=== PATIENT | female | born 1985 | race Caucasian/White ===

== ENCOUNTER 2023-04-04 15:37 | Emergency (ER) | payer MEDICARE, OTHER ==
[2023-04-04 15:51] VITALS: BP 131/75; PULSE 85; RESP 18; TEMP 98.2; BMI 33.6
[2023-04-04] MEDS ORDERED: SODIUM CHLORIDE 0.9% 500 ML INFUS.BAG IV ONE (17:32)
[2023-04-04 18:05] LABS: EPI CELLS >36 /uL (0-25.1); HYALINE CASTS 4 /uL (0-3.1); PH,URINE 5.5 (5.0-8.0); URINE APPEARANCE CLEAR; URINE BACTERIA 414 /uL (0-1359); URINE BILIRUBIN NEGATIVE (NEGATIVE); URINE COLOR YELLOW; URINE GLUCOSE (UA) NEGATIVE (NEGATIVE); URINE KETONE NEGATIVE (NEGATIVE); URINE LEUK ESTERASE 2+ (NEGATIVE); URINE NITRITE NEGATIVE (NEGATIVE); URINE PROTEIN NEGATIVE (NEGATIVE); URINE RBC 63 /uL (0-23.9); URINE UROBILINOGEN 0.2 mg/dL (0.2-1.0); URINE WBC 483 /uL (0-25.8)
[2023-04-04 18:06] LABS: BASO % 0.3 % (0-2.0); EOS % 1.9 % (0-4.5); HEMATOCRIT 38.1 % (32.4-45.2); HEMOGLOBIN 12.5 GM/dL (10.7-15.3); LYMPH % 21.5 % (8-40); MCH 26.4 pg (25.7-33.7); MCHC 32.9 g/dl (32.0-36.0); MEAN CELL VOLUME 80.1 fl (80-96); MEAN PLT VOLUME 8.9 fl (7.5-11.1); MONO % 4.6 % (3.8-10.2); NEUT % 71.7 % (42.8-82.8); PLATELET COUNT 291 10^3/uL (134-434); RBC 4.75 M/mm3 (3.60-5.2); RDW 14.3 % (11.6-15.6); WHITE BLOOD COUNT 9.9 K/mm3 (4.0-10.0)
[2023-04-04 18:20] LABS: HCG,QUALITATIVE URINE Negative
[2023-04-04] MEDS ORDERED: CEFTRIAXONE 1,000 MG in DEXTROSE 5%-WATER - 50 ML IVPB ONE (18:27)
[2023-04-04 18:41] LABS: CALCIUM 8.2 mg/dL (8.5-10.1)
[2023-04-04 18:42] LABS: BLOOD UREA NITROGEN 9.7 mg/dL (7-18)
[2023-04-04 18:45] LABS: CREATININE 0.8 mg/dL (0.55-1.3)
[2023-04-04] MEDS ORDERED: cefTRIAXone SODIUM 1 GM VIAL ONE (18:45)
== END 2023-04-04 19:27 | disposition home or self-care (01) ==
LOC: JERFT 15:37
DX: R39.15 Urgency of urination (principal); R30.0 Dysuria; R39.11 Hesitancy of micturition; N89.8 Other specified noninflammatory disorders of vagina; N39.0 Urinary tract infection, site not specified; B37.31 Acute candidiasis of vulva and vagina
CPT/HCPCS: 36415; 80048; 81003; 84703; 85025; 87086; 87491; 87591; 87661; 96365; 99284-25

== ENCOUNTER 2023-05-27 09:10 | Emergency (ER) | payer MEDICARE, OTHER ==
[2023-05-27 09:20] VITALS: BP 138/82; PULSE 82; RESP 16; TEMP 98.3; BMI 31.1
[2023-05-27 09:40] LABS: EPI CELLS >36 /uL (0-25.1); HYALINE CASTS 1 /uL (0-3.1); PH,URINE 5.5 (5.0-8.0); URINE APPEARANCE CLOUDY; URINE BACTERIA 155 /uL (0-1359); URINE BILIRUBIN NEGATIVE (NEGATIVE); URINE COLOR YELLOW; URINE GLUCOSE (UA) NEGATIVE (NEGATIVE); URINE KETONE NEGATIVE (NEGATIVE); URINE LEUK ESTERASE 3+ (NEGATIVE); URINE NITRITE NEGATIVE (NEGATIVE); URINE PROTEIN NEGATIVE (NEGATIVE); URINE RBC 30 /uL (0-23.9); URINE UROBILINOGEN 0.2 mg/dL (0.2-1.0); URINE WBC 609 /uL (0-25.8)
[2023-05-27] MEDS ORDERED: FLUCONAZOLE 50 MG TABLET PO ONE (10:31)
[2023-05-27] MEDS ORDERED: FLUCONAZOLE 150 MG TABLET PO ONE (11:21)
== END 2023-05-27 11:25 | disposition home or self-care (01) ==
LOC: JERFT 09:10
DX: R30.0 Dysuria (principal); N89.8 Other specified noninflammatory disorders of vagina; N39.0 Urinary tract infection, site not specified
CPT/HCPCS: 81003; 87086; 99283-25

== ENCOUNTER 2023-07-01 10:01 | Emergency (ER) | payer MEDICARE, OTHER ==
[2023-07-01] MEDS ORDERED: IBUPROFEN 600 MG TABLET (FP) PO ONE (10:14)
[2023-07-01 11:36] VITALS: BP 139/88; RESP 18; BMI 32.5
[2023-07-01] MEDS ORDERED: ACETAMINOPHEN 500 MG TABLET (FP) PO ONE (11:45)
[2023-07-01] MEDS ORDERED: DEXAMETHASONE 4 MG TABLET (FP) PO ONE (11:45)
[2023-07-01] MEDS ORDERED: AZITHROMYCIN 250 MG TABLET PO ONE (11:45)
[2023-07-01] MEDS ORDERED: ACETAMINOPHEN 325 MG TABLET (FP) ONE (11:49)
[2023-07-01] MEDS ORDERED: AZITHROMYCIN 500 MG TABLET ONE (11:49)
[2023-07-01] MEDS ORDERED: DEXAMETHASONE 4 MG TABLET (FP) ONE (11:50)
[2023-07-01 12:04] LABS: EPI CELLS >36 /uL (0-25.1); HYALINE CASTS 0 /uL (0-3.1); URINE APPEARANCE CLOUDY; URINE BACTERIA >9,000 /uL (0-1359); URINE BILIRUBIN NEGATIVE (NEGATIVE); URINE COLOR YELLOW; URINE GLUCOSE (UA) NEGATIVE (NEGATIVE); URINE KETONE NEGATIVE (NEGATIVE); URINE LEUK ESTERASE 3+ (NEGATIVE); URINE NITRITE POSITIVE (NEGATIVE); URINE PROTEIN TRACE (NEGATIVE); URINE RBC 60 /uL (0-23.9); URINE UROBILINOGEN 0.2 mg/dL (0.2-1.0); URINE WBC 3615 /uL (0-25.8)
[2023-07-01] MEDS ORDERED: CIPROFLOXACIN 500 MG TABLET (RESTRICTED TO ID) PO ONE (12:15)
[2023-07-01 12:54] VITALS: PULSE 100; TEMP 99.8
== END 2023-07-01 13:08 | disposition home or self-care (01) ==
LOC: JER 10:01
DX: M54.50 Low back pain, unspecified (principal); R68.83 Chills (without fever); J02.0 Streptococcal pharyngitis; R00.0 Tachycardia, unspecified; R10.30 Lower abdominal pain, unspecified; J39.2 Other diseases of pharynx; N12 Tubulo-interstitial nephritis, not specified as acute or chronic; N39.0 Urinary tract infection, site not specified; R39.15 Urgency of urination; R30.0 Dysuria; Z20.822 Contact with and (suspected) exposure to COVID-19
CPT/HCPCS: 0241U-QW; 81003; 84703; 87086; 87186; 87651; 99283-25

== ENCOUNTER 2023-07-10 11:28 | Emergency (ER) | payer MEDICARE, OTHER ==
[2023-07-10 11:39] VITALS: RESP 18; TEMP 98; BMI 34.7
[2023-07-10] MEDS ORDERED: NITROFURANTOIN MACROCRYSTAL 50 MG CAPSULE (FP) PO ONE (15:15)
[2023-07-10] MEDS ORDERED: NITROFURANTOIN MACROCRYSTAL 50 MG CAPSULE (FP) ONE (15:25)
[2023-07-10 15:52] VITALS: BP 126/75; PULSE 80
== END 2023-07-10 15:52 | disposition home or self-care (01) ==
LOC: JER 11:28
DX: N39.0 Urinary tract infection, site not specified (principal); B96.29 Other Escherichia coli [E. coli] as the cause of diseases classified elsewhere
CPT/HCPCS: 99283-25

== ENCOUNTER 2023-07-12 19:15 | Inpatient (IN) | payer MEDICARE, OTHER ==
[2023-07-12 19:27] VITALS: RESP 18
[2023-07-12] MEDS: NITROFURANTOIN MACROCRYSTAL 50 MG CAPSULE (FP) PO SCH (20:23)
[2023-07-12 20:32] LABS: EPI CELLS 3 /uL (0-25.1); HYALINE CASTS 0 /uL (0-3.1); PH,URINE 5.5 (5.0-8.0); URINE APPEARANCE TURBID; URINE BACTERIA 93 /uL (0-1359); URINE BILIRUBIN NEGATIVE (NEGATIVE); URINE COLOR YELLOW; URINE GLUCOSE (UA) NEGATIVE (NEGATIVE); URINE KETONE NEGATIVE (NEGATIVE); URINE LEUK ESTERASE 3+ (NEGATIVE); URINE NITRITE NEGATIVE (NEGATIVE); URINE PROTEIN TRACE (NEGATIVE); URINE RBC 2151 /uL (0-23.9); URINE UROBILINOGEN 0.2 mg/dL (0.2-1.0); URINE WBC 3458 /uL (0-25.8)
[2023-07-12] MEDS ORDERED: MEROPENEM 1 GM VIAL (RESTRICTED TO ID) IVPB ONE (21:26)
[2023-07-12] MEDS: MEROPENEM 1 GM in DEXTROSE 5%-WATER 100 ML IVPB ONE (21:34)
[2023-07-12 21:56] LABS: BASO % 0.2 % (0-2.0); EOS % 2.2 % (0-4.5); HEMATOCRIT 38.4 % (32.4-45.2); HEMOGLOBIN 12.6 GM/dL (10.7-15.3); LYMPH % 22.2 % (8-40); MCH 27.1 pg (25.7-33.7); MCHC 32.9 g/dl (32.0-36.0); MEAN CELL VOLUME 82.2 fl (80-96); MEAN PLT VOLUME 8.7 fl (7.5-11.1); MONO % 4.4 % (3.8-10.2); PLATELET COUNT 285 10^3/uL (134-434); RBC 4.67 M/mm3 (3.60-5.2); RDW 14.3 % (11.6-15.6); WHITE BLOOD COUNT 11.9 K/mm3 (4.0-10.0)
[2023-07-12 22:08] LABS: POTASSIUM 3.9 mmol/L (3.5-5.1)
[2023-07-12 22:11] LABS: CALCIUM 8.5 mg/dL (8.5-10.1)
[2023-07-12 22:12] LABS: ALBUMIN 3.2 g/dl (3.4-5.0); BLOOD UREA NITROGEN 13.3 mg/dL (7-18)
[2023-07-12 22:15] LABS: BILIRUBIN,TOTAL 0.1 mg/dL (0.2-1); CREATININE 0.9 mg/dL (0.55-1.3)
[2023-07-12] MEDS ORDERED: ACETAMINOPHEN INJECTION 100 ML IVPB ONE (22:59)
[2023-07-12] MEDS: ACETAMINOPHEN 1000 MG/100 ML BAG IVPB ONE (23:04)
[2023-07-13] MEDS: SODIUM CHLORIDE 1,000 ML IV SCH ×2 (02:20)
[2023-07-13] MEDS: SODIUM CHLORIDE 0.9% 500 ML INFUS.BAG IV ONE (02:21)
[2023-07-13 03:01] VITALS: BMI 33.3
[2023-07-13 08:24] LABS: BASO % 0.3 % (0-2.0); HEMATOCRIT 33.9 % (32.4-45.2); HEMOGLOBIN 11.5 GM/dL (10.7-15.3); LYMPH % 23.1 % (8-40); MCH 27.7 pg (25.7-33.7); MEAN CELL VOLUME 81.3 fl (80-96); MEAN PLT VOLUME 8.3 fl (7.5-11.1); MONO % 5.7 % (3.8-10.2); NEUT % 67.9 % (42.8-82.8); PLATELET COUNT 228 10^3/uL (134-434); RBC 4.17 M/mm3 (3.60-5.2); RDW 14.2 % (11.6-15.6); WHITE BLOOD COUNT 7.5 K/mm3 (4.0-10.0)
[2023-07-13 08:48] LABS: POTASSIUM 4.1 mmol/L (3.5-5.1)
[2023-07-13 09:00] LABS: CALCIUM 7.6 mg/dL (8.5-10.1)
[2023-07-13 09:01] LABS: ALBUMIN 2.6 g/dl (3.4-5.0); MAGNESIUM 1.9 mg/dL (1.8-2.4)
[2023-07-13 09:04] LABS: CREATININE 0.6 mg/dL (0.55-1.3); PHOSPHOROUS 3.3 mg/dL (2.5-4.9)
[2023-07-13 09:06] LABS: BILIRUBIN,TOTAL 0.7 mg/dL (0.2-1); TOT PROT 5.9 g/dl (6.4-8.2)
[2023-07-13] MEDS: ENOXAPARIN NA (PORCINE) 40 MG/0.4 ML DISP.SYRIN SQ SCH (09:47)
[2023-07-13] MEDS: ACETAMINOPHEN 1000 MG/100 ML BAG IVPB PRN (09:47)
[2023-07-13] MEDS: guaiFENesin 200 MG/10 ML 10 ML UNIT-DOSE CUPS PO PRN (10:20)
[2023-07-13] MEDS: ERTAPENEM SODIUM 1 GM in SODIUM CHLORIDE 50 ML IVPB SCH (13:01)
[2023-07-13] MEDS ORDERED: ERTAPENEM SODIUM 1 GM in SODIUM CHLORIDE 50 ML IVPB SCH (21:00)
[2023-07-14] MEDS ORDERED: ERTAPENEM SODIUM 1 GM in SODIUM CHLORIDE 50 ML IVPB SCH (11:03)
[2023-07-14] MEDS: ERTAPENEM SODIUM 1 GM in SODIUM CHLORIDE 50 ML IVPB SCH (11:24)
[2023-07-14] MEDS: ACETAMINOPHEN 325 MG TABLET (FP) PO PRN (18:19)
[2023-07-15 08:23] LABS: BASO % 0.2 % (0-2.0); EOS % 2.9 % (0-4.5); HEMATOCRIT 38.1 % (32.4-45.2); HEMOGLOBIN 12.6 GM/dL (10.7-15.3); LYMPH % 28.4 % (8-40); MCH 27.2 pg (25.7-33.7); MCHC 33.1 g/dl (32.0-36.0); MEAN CELL VOLUME 82.2 fl (80-96); MONO % 6.2 % (3.8-10.2); NEUT % 62.3 % (42.8-82.8); PLATELET COUNT 265 10^3/uL (134-434); RBC 4.63 M/mm3 (3.60-5.2); RDW 14.7 % (11.6-15.6); WHITE BLOOD COUNT 7.4 K/mm3 (4.0-10.0)
[2023-07-15 08:39] LABS: POTASSIUM 4.5 mmol/L (3.5-5.1)
[2023-07-15 08:47] LABS: BLOOD UREA NITROGEN 11.6 mg/dL (7-18); CALCIUM 8.7 mg/dL (8.5-10.1); CREATININE 0.7 mg/dL (0.55-1.3)
[2023-07-15 08:48] LABS: BILIRUBIN,TOTAL 0.3 mg/dL (0.2-1)
[2023-07-15 08:55] LABS: ALBUMIN 3.1 g/dl (3.4-5.0)
[2023-07-15 15:27] VITALS: BP 147/97; PULSE 75; TEMP 98.7
== END 2023-07-15 17:50 | disposition home or self-care (01) | DRG 690 ==
LOC: JER 19:15 → JERBED 23:17 → OBSVTOIN 23:56 → J7W 07-13 01:04
PROVIDERS: ADMIT Internal Medicine; ATTEND Internal Medicine
PROC: 02HV33Z Insertion of Infusion Device into Superior Vena Cava, Percutaneous Approach (ICD-10-PCS; principal; 2023-07-15)
PROC: B548ZZA Ultrasonography of Superior Vena Cava, Guidance (ICD-10-PCS; 2023-07-15)
DX: N10 Acute pyelonephritis (principal); Q60.0 Renal agenesis, unilateral; N39.0 Urinary tract infection, site not specified; D72.829 Elevated white blood cell count, unspecified; N12 Tubulo-interstitial nephritis, not specified as acute or chronic; B96.20 Unspecified Escherichia coli [E. coli] as the cause of diseases classified elsewhere
CPT/HCPCS: 36415; 36569; 74176-TC; 77001-TC-FY; 80053; 81003; 83735; 84100; 84703; 85025; 87040; 87086; 93005; 93010; 99283-25; 99285-25; C1751; G0378; J0131

== ENCOUNTER 2023-07-16 14:54 | Day surgery (SDC) | payer MEDICARE, OTHER ==
[2023-07-16] MEDS ORDERED: ERTAPENEM SODIUM 1 GM in SODIUM CHLORIDE 50 ML IVPB ONE (15:15)
[2023-07-16 15:52] VITALS: BP 120/68; PULSE 80; RESP 16; TEMP 97.6
== END 2023-07-16 15:53 | disposition home or self-care (01) ==
LOC: FINFUSION 14:54 → FM/S 14:55 → FINFUSION 15:53
PROVIDERS: ATTEND Internal Medicine
DX: N39.0 Urinary tract infection, site not specified (principal); B96.89 Other specified bacterial agents as the cause of diseases classified elsewhere
CPT/HCPCS: 96365

== ENCOUNTER 2023-07-17 14:18 | Day surgery (SDC) | payer MEDICARE, OTHER ==
[2023-07-17] MEDS ORDERED: ERTAPENEM SODIUM 1 GM in SODIUM CHLORIDE 50 ML IVPB ONE (14:45)
[2023-07-17 15:31] VITALS: BP 118/73; PULSE 73; RESP 20; TEMP 98.5
== END 2023-07-17 18:00 | disposition home or self-care (01) ==
LOC: FINFUSION 14:18 → FM/S 14:19 → FINFUSION 18:00
PROVIDERS: ATTEND Internal Medicine
DX: N12 Tubulo-interstitial nephritis, not specified as acute or chronic (principal); B96.20 Unspecified Escherichia coli [E. coli] as the cause of diseases classified elsewhere
CPT/HCPCS: 96365

== ENCOUNTER 2023-07-18 14:10 | Day surgery (SDC) | payer MEDICARE, OTHER ==
[2023-07-18] MEDS ORDERED: ERTAPENEM SODIUM 1 GM in SODIUM CHLORIDE 50 ML IVPB ONE (15:00)
[2023-07-18 16:00] VITALS: BP 120/76; PULSE 74; RESP 16; TEMP 98.2
== END 2023-07-18 15:28 | disposition home or self-care (01) ==
LOC: FINFUSION 14:10 → FM/S 14:11 → FINFUSION 15:28
PROVIDERS: ATTEND Internal Medicine
DX: N12 Tubulo-interstitial nephritis, not specified as acute or chronic (principal); B96.20 Unspecified Escherichia coli [E. coli] as the cause of diseases classified elsewhere
CPT/HCPCS: 96365

== ENCOUNTER 2023-07-19 16:18 | Day surgery (SDC) | payer MEDICARE, OTHER ==
[2023-07-19] MEDS ORDERED: ERTAPENEM SODIUM 1 GM in SODIUM CHLORIDE 50 ML IVPB ONE (16:45)
[2023-07-19 17:30] VITALS: BP 132/83; PULSE 72; RESP 18; TEMP 98.5
== END 2023-07-19 17:35 | disposition home or self-care (01) ==
LOC: FINFUSION 16:18 → FM/S 16:18 → FINFUSION 17:35
PROVIDERS: ATTEND Internal Medicine
DX: N12 Tubulo-interstitial nephritis, not specified as acute or chronic (principal); B96.20 Unspecified Escherichia coli [E. coli] as the cause of diseases classified elsewhere
CPT/HCPCS: 96365

== ENCOUNTER 2023-07-20 14:56 | Day surgery (SDC) | payer MEDICARE, OTHER ==
[2023-07-20] MEDS ORDERED: ERTAPENEM SODIUM 1 GM in SODIUM CHLORIDE 50 ML IVPB SCH (15:15)
[2023-07-20 16:34] VITALS: BP 135/78; PULSE 81; RESP 18; TEMP 98.6
== END 2023-07-20 15:50 | disposition home or self-care (01) ==
LOC: FM/S 14:56 → FINFUSION 14:56
PROVIDERS: ATTEND Internal Medicine
DX: N12 Tubulo-interstitial nephritis, not specified as acute or chronic (principal); B96.20 Unspecified Escherichia coli [E. coli] as the cause of diseases classified elsewhere
CPT/HCPCS: 96365

== ENCOUNTER 2023-07-21 11:53 | Day surgery (SDC) | payer MEDICARE, OTHER ==
[2023-07-21] MEDS ORDERED: ERTAPENEM SODIUM 1 GM in SODIUM CHLORIDE 50 ML IVPB ONE (12:30)
[2023-07-21 12:56] VITALS: BP 128/78; PULSE 76; RESP 19; TEMP 98.5
== END 2023-07-21 12:57 | disposition home or self-care (01) ==
LOC: FM/S 11:53 → FINFUSION 11:53
PROVIDERS: ATTEND Internal Medicine
DX: N12 Tubulo-interstitial nephritis, not specified as acute or chronic (principal); B96.20 Unspecified Escherichia coli [E. coli] as the cause of diseases classified elsewhere
CPT/HCPCS: 96365

== ENCOUNTER 2023-07-22 15:56 | Day surgery (SDC) | payer MEDICARE, OTHER ==
[2023-07-22] MEDS ORDERED: ERTAPENEM SODIUM 1 GM in SODIUM CHLORIDE 50 ML IVPB ONE (16:15)
[2023-07-22 16:22] VITALS: PULSE 94; RESP 18; TEMP 98
[2023-07-22 17:22] VITALS: BP 130/80
== END 2023-07-22 18:30 | disposition home or self-care (01) ==
LOC: FINFUSION 15:56 → FM/S 15:58 → FINFUSION 18:30
PROVIDERS: ATTEND Internal Medicine
DX: N12 Tubulo-interstitial nephritis, not specified as acute or chronic (principal); B96.20 Unspecified Escherichia coli [E. coli] as the cause of diseases classified elsewhere
CPT/HCPCS: 96365

== ENCOUNTER 2023-12-18 06:56 | Emergency (ER) | payer MEDICARE, OTHER ==
[2023-12-18 07:05] VITALS: BP 110/78; PULSE 95; RESP 16; TEMP 99.3; BMI 32.5
[2023-12-18] MEDS ORDERED: KETOROLAC TROMETHAMINE 30 MG/1 ML VIAL IVPUSH ONE (07:27)
[2023-12-18] MEDS ORDERED: SODIUM CHLORIDE 0.9% 1000 ML INFUS.BAG IV ONE (07:27)
[2023-12-18] MEDS ORDERED: KETOROLAC TROMETHAMINE 30 MG/1 ML VIAL ONE (07:33)
[2023-12-18] MEDS: NITROFURANTOIN MACROCRYSTAL 50 MG CAPSULE (FP) PO SCH (07:58)
[2023-12-18] MEDS ORDERED: NITROFURANTOIN MONOHYD/M-CRYST 100 MG CAPSULE PO SCH (08:16)
[2023-12-18 08:27] LABS: EPI CELLS 36 /uL (0-25.1); HCG,QUALITATIVE URINE Negative; HYALINE CASTS 0 /uL (0-3.1); URINE APPEARANCE CLOUDY; URINE BACTERIA >9,000 /uL (0-1359); URINE BILIRUBIN NEGATIVE (NEGATIVE); URINE COLOR YELLOW; URINE GLUCOSE (UA) NEGATIVE (NEGATIVE); URINE KETONE NEGATIVE (NEGATIVE); URINE LEUK ESTERASE 3+ (NEGATIVE); URINE NITRITE POSITIVE (NEGATIVE); URINE PROTEIN 1+ (NEGATIVE); URINE UROBILINOGEN 0.2 mg/dL (0.2-1.0); URINE WBC 2744 /uL (0-25.8)
[2023-12-18 08:57] LABS: URINE RBC 61.3 /uL (0-23.9)
== END 2023-12-18 08:24 | disposition left against medical advice (07) ==
LOC: JER 06:56
DX: N30.00 Acute cystitis without hematuria (principal); B96.29 Other Escherichia coli [E. coli] as the cause of diseases classified elsewhere; R30.0 Dysuria; R10.30 Lower abdominal pain, unspecified
CPT/HCPCS: 81003; 84703; 87086; 87186; 99283-25

== ENCOUNTER 2023-12-19 14:01 | Emergency (ER) | payer MEDICARE ==
[2023-12-19 14:11] VITALS: BP 130/79; PULSE 95; RESP 18; TEMP 98.3; BMI 32.5
[2023-12-19] MEDS: LACTATED RINGERS SOLUTION 1,000 ML/1,000 ML INFUS.BAG IV SCH (15:42)
[2023-12-19 15:48] LABS: BASO % 0.1 % (0-2.0); EOS % 0.8 % (0-4.5); HEMATOCRIT 34.9 % (32.4-45.2); LYMPH % 14.1 % (8-40); MCH 27.8 pg (25.7-33.7); MCHC 34.2 g/dl (32.0-36.0); MEAN CELL VOLUME 81.3 fl (80-96); MEAN PLT VOLUME 7.9 fl (7.5-11.1); MONO % 6.9 % (3.8-10.2); NEUT % 78.1 % (42.8-82.8); PLATELET COUNT 203 10^3/uL (134-434); RDW 13.5 % (11.6-15.6); WHITE BLOOD COUNT 7.4 K/mm3 (4.0-10.0)
[2023-12-19 15:52] LABS: EPI CELLS >36 /uL (0-25.1); HYALINE CASTS 1 /uL (0-3.1); URINE APPEARANCE CLOUDY; URINE BACTERIA 896 /uL (0-1359); URINE BILIRUBIN NEGATIVE (NEGATIVE); URINE COLOR YELLOW; URINE GLUCOSE (UA) NEGATIVE (NEGATIVE); URINE KETONE NEGATIVE (NEGATIVE); URINE LEUK ESTERASE 3+ (NEGATIVE); URINE NITRITE NEGATIVE (NEGATIVE); URINE PROTEIN TRACE (NEGATIVE); URINE UROBILINOGEN 0.2 mg/dL (0.2-1.0); URINE WBC 864 /uL (0-25.8)
[2023-12-19 15:55] LABS: URINE RBC 35 /uL (0-23.9)
[2023-12-19 16:15] LABS: POTASSIUM 3.6 mmol/L (3.5-5.1)
[2023-12-19 16:17] LABS: CALCIUM 8.7 mg/dL (8.5-10.1)
[2023-12-19 16:18] LABS: BLOOD UREA NITROGEN 11.3 mg/dL (7-18)
[2023-12-19 16:21] LABS: CREATININE 0.7 mg/dL (0.55-1.3)
[2023-12-19 16:22] LABS: TOT PROT 6.9 g/dl (6.4-8.2)
[2023-12-19 16:23] LABS: BILIRUBIN,TOTAL 0.3 mg/dL (0.2-1)
[2023-12-19] MEDS ORDERED: ACETAMINOPHEN 500 MG TABLET (FP) ONE (16:49)
[2023-12-19] MEDS ORDERED: ACETAMINOPHEN 325 MG TABLET (FP) ONE (16:56)
[2023-12-19] MEDS: ACETAMINOPHEN 500 MG TABLET (FP) PO ONE (17:35)
== END 2023-12-19 18:10 | disposition home or self-care (01) ==
LOC: JER 14:01
DX: N30.00 Acute cystitis without hematuria (principal); M54.50 Low back pain, unspecified; R50.9 Fever, unspecified; M79.10 Myalgia, unspecified site
CPT/HCPCS: 36415; 76775-TC; 80053; 81003; 85025; 87040; 87086; 99284-25

== ENCOUNTER 2024-03-08 10:56 | Emergency (ER) | payer MEDICARE ==
[2024-03-08 11:03] VITALS: BP 112/75; PULSE 79; RESP 18; TEMP 99; BMI 32.5
[2024-03-08 11:47] LABS: EPI CELLS 30 /uL (0-25.1); HYALINE CASTS 0 /uL (0-3.1); URINE APPEARANCE CLOUDY; URINE BACTERIA >9,000 /uL (0-1359); URINE BILIRUBIN NEGATIVE (NEGATIVE); URINE COLOR YELLOW; URINE GLUCOSE (UA) NEGATIVE (NEGATIVE); URINE KETONE NEGATIVE (NEGATIVE); URINE LEUK ESTERASE 3+ (NEGATIVE); URINE NITRITE POSITIVE (NEGATIVE); URINE PROTEIN NEGATIVE (NEGATIVE); URINE RBC 39 /uL (0-23.9); URINE UROBILINOGEN 0.2 mg/dL (0.2-1.0); URINE WBC 2121 /uL (0-25.8)
== END 2024-03-08 12:40 | disposition home or self-care (01) ==
LOC: JER 10:56 → JERFT 10:56
DX: N39.0 Urinary tract infection, site not specified (principal)
CPT/HCPCS: 81003; 87086; 87186; 99283-25

== ENCOUNTER 2024-03-28 09:10 | Emergency (ER) | payer MEDICARE ==
[2024-03-28 09:31] VITALS: BMI 31.6
[2024-03-28 10:11] LABS: BASO % 0.1 % (0-2.0); EOS % 2.3 % (0-4.5); HEMATOCRIT 37.8 % (32.4-45.2); HEMOGLOBIN 12.7 GM/dL (10.7-15.3); LYMPH % 19.1 % (8-40); MCH 27.6 pg (25.7-33.7); MCHC 33.7 g/dl (32.0-36.0); MONO % 4.1 % (3.8-10.2); NEUT % 74.4 % (42.8-82.8); PLATELET COUNT 244 10^3/uL (134-434); RBC 4.61 M/mm3 (3.60-5.2); RDW 14.2 % (11.6-15.6); WHITE BLOOD COUNT 7.7 K/mm3 (4.0-10.0)
[2024-03-28 10:15] LABS: EPI CELLS 19 /uL (0-25.1); HCG,QUALITATIVE URINE Negative; HYALINE CASTS 1 /uL (0-3.1); PH,URINE 6.5 (5.0-8.0); URINE APPEARANCE CLEAR; URINE BACTERIA >9,000 /uL (0-1359); URINE BILIRUBIN NEGATIVE (NEGATIVE); URINE COLOR YELLOW; URINE GLUCOSE (UA) NEGATIVE (NEGATIVE); URINE KETONE NEGATIVE (NEGATIVE); URINE LEUK ESTERASE 3+ (NEGATIVE); URINE NITRITE NEGATIVE (NEGATIVE); URINE PROTEIN NEGATIVE (NEGATIVE); URINE RBC 22 /uL (0-23.9); URINE UROBILINOGEN 0.2 mg/dL (0.2-1.0); URINE WBC 399 /uL (0-25.8)
[2024-03-28 10:50] LABS: POTASSIUM 4.7 mmol/L (3.5-5.1)
[2024-03-28 10:51] LABS: CALCIUM 8.9 mg/dL (8.5-10.1)
[2024-03-28 10:52] LABS: ALBUMIN 3.3 g/dl (3.4-5.0); BLOOD UREA NITROGEN 10.6 mg/dL (7-18)
[2024-03-28 10:55] LABS: CREATININE 0.7 mg/dL (0.55-1.3)
[2024-03-28 10:56] LABS: BILIRUBIN,TOTAL 0.3 mg/dL (0.2-1)
[2024-03-28] MEDS ORDERED: PIPERACILLIN/TAZOB 4.5 GM 4.5 GM/100 ML BAG IVPB ONE (11:56)
[2024-03-28] MEDS: PIPERACILLIN/TAZOB 4.5 GM 4.5 GM in DEXTROSE 5%-WATER 100 ML IVPB ONE (12:04)
[2024-03-28 12:20] VITALS: BP 106/75; PULSE 76; RESP 18; TEMP 98.3
== END 2024-03-28 13:12 | disposition home or self-care (01) ==
LOC: JER 09:10
PROC: 3E03329 Introduction of Other Anti-infective into Peripheral Vein, Percutaneous Approach (ICD-10-PCS; principal; 2024-03-28)
PROC: 3E033GC Introduction of Other Therapeutic Substance into Peripheral Vein, Percutaneous Approach (ICD-10-PCS; 2024-03-28)
DX: N39.0 Urinary tract infection, site not specified (principal); R39.11 Hesitancy of micturition
CPT/HCPCS: 36415; 80053; 81003; 84703; 85025; 87086; 87186; 96365; 96375; 99284-25